=== PATIENT | male | born 1970 | race Caucasian/White ===

== ENCOUNTER 2021-02-09 10:33 | Outpatient (REF) | payer MEDICARE, OTHER, SELFPAY ==
[2021-02-09 12:22] LABS: Alanine Aminotransferase 30 U/L (0-40); Aspartate Amino Transferase 22 U/L (5-37); Gamma Glutamyl Transpeptidase 53 U/L (11-51)
== END 2021-02-09 10:34 | disposition home or self-care (01) ==
LOC: HO.LAB 10:33
PROVIDERS: Visit Provider Registered Nurse
DX: F11.20 Opioid dependence, uncomplicated (principal)
CPT/HCPCS: 36415; 82977; 84450; 84460